=== PATIENT | male | born 1945 | race Caucasian/White ===

== ENCOUNTER 2017-05-25 00:21 | Inpatient (IN) | payer MEDICARE, BC ==
[2017-05-24 15:39] LABS: INR 1.03
[~2017-05-25] VITALS: Ht 162.6 cm; Wt 108.4 kg
[2017-05-25] VITALS (18 sets, daily range): BP systolic 113–170; BP diastolic 60–101
[~2017-05-25 00:21] MED LIST: ALLO-119 PO; ASPI-1471 PO; CARV25TA78 PO; DICL-195 PO; FURO20TA19 PO; KETO5DRO13 OP; LEVO50TA86 PO; LOSA100T67 PO; MISO200T62 PO; POLY17PO25 PO; SIMV-54 PO; TRAM-420 PO
--- NOTE | 2017-05-25 04:39 | HISTORY AND PHYSICAL ---
DATE OF ADMISSION: May 25, 2017 IDENTIFICATION, CHIEF COMPLAINT Kev is a 71-year-old gentleman with chief complaint of left hip pain. HISTORY OF PRESENT ILLNESS Patient has a longstanding history of arthritis progressively painful and debilitating, refractory to conservative care. Surgery is indicated to relieve pain after failure of nonoperative measures. PAST MEDICAL HISTORY Notable for coronary artery disease status post OR and stenting, hypertension controlled on medication, remote history of pneumonia. ALLERGIES He has no known allergies. CURRENT MEDICATIONS 1. Diclofenac 75 b.i.d. 2. Misoprostol 200 mcg b.i.d. 3. Levothyroxine 50 mcg p.o. q.day. 4. Carvedilol 25 mg p.o. b.i.d. 5. Simvastatin 40 mg p.o. b.i.d. 6. Losartan 100 mg p.o. q.day. 7. Allopurinol 300 mg p.o. q.day. 8. Furosemide 10 mg p.o. q.day. 9. Zaditor eye drops b.i.d. 10. Aspirin 81 mg p.o. q.day. PAST SURGICAL HISTORY Notable for coronary stent x 3, vasectomy, hemorrhoidectomy, thyroidectomy, carpal tunnel, right shoulder repair, sinus surgery, cataracts, back surgeries x 5. SOCIAL HISTORY Notable for chewing tobacco. He chews about a can every couple of weeks. Denies alcohol use or abuse. FAMILY HISTORY Negative. REVIEW OF SYSTEMS Negative. PHYSICAL EXAMINATION GENERAL: This is a healthy male. HEENT: He is normocephalic, atraumatic. NECK: Supple. LUNGS: Clear. HEART: Regular. ABDOMEN: Soft. ORTHOPEDIC EXAM: The left hip is stiff at the end range of motion. He has pain with combined flexion and rotation. Gross motor strength is intact. Skin envelope is intact. Neurovascular function is intact distally. RADIOGRAPHIC DATA Radiographs demonstrate end-stage hip arthritis. ASSESSMENT Left hip degenerative joint disease, progressively painful and disabling, refractory to conservative care. PLAN Per patient request, will proceed with total hip arthroplasty. Nature of the procedure, risks, benefits, and nonoperative alternatives are reviewed. Risks include, but are not limited to, , major medical or anesthetic complication , infection, neurovascular injury, blood transfusion, stiffness, scarring, fracture, tendon rupture, instability, leg length discrepancy, implant loosening , migration or failure, persistent or recurrent pain, need for additional operation, and other unforeseen. He understands and wishes to proceed. Signed permit was placed in the chart, no guarantees given or implied. KIM
[2017-05-25] MEDS ORDERED: cloNIDine EPIDUR INJ 100MCG/ML 40 MCG, ROPIVACAINE 0.5% 20 ML VIAL 25 ML, EPINEPHrine H... INJ ONE (06:15)
[2017-05-25] MEDS ORDERED: FAMOTIDINE 20 MG TAB PO ONE (06:15)
[2017-05-25] MEDS ORDERED: MIDAZOLAM 2 MG/2 ML VIAL IVP PRN (06:15)
[2017-05-25] MEDS ORDERED: LIDOCAINE/SOD BICARB 8.4% SYR ID ONE (06:15)
[2017-05-25] MEDS ORDERED: TRANEXAMIC AC 1000 MG/10ML SDV 1,000 MG in DEXTROSE 5% 50 ML BAG 50 ML IV ONE (06:15)
[2017-05-25] MEDS ORDERED: ceFAZolin(*) 2GM/D5W 50ML 50 ML IVPB ONE (06:15)
[2017-05-25] MEDS ORDERED: NORMOSOL R SOLN(*) 1000 ML BAG 1,000 ML IV PRN ×2 (06:15→09:30)
[2017-05-25] MEDS ORDERED: DEXAMETHASONE SOD PHOS 10MG/ML ONE (07:06)
[2017-05-25] MEDS ORDERED: ONDANSETRON 4 MG/2 ML VIAL ONE (07:06)
[2017-05-25] MEDS ORDERED: fentaNYL CITR 100 MCG/2 ML AMP ONE ×2 (07:07→09:28)
[2017-05-25] MEDS ORDERED: PROPOFOL EMUL(*) 10MG/ML 20 ML 40 ML ONE (07:07)
[2017-05-25] MEDS ORDERED: ROCURONIUM BROM 10 MG/ML 10 ML ONE (07:07)
[2017-05-25] MEDS ORDERED: LIDOCAINE MPF 1% 5 ML VIAL ONE (07:07)
[2017-05-25] MEDS ORDERED: SUCCINYLCHOL CHL 200MG/10ML VL ONE (07:07)
[2017-05-25] MEDS ORDERED: PHENYLEPHRINE/NS/PF 0.4MG/10ML ONE (07:30)
[2017-05-25] MEDS ORDERED: BISACODYL 10 MG SUPP PR PRN (09:30)
[2017-05-25] MEDS ORDERED: ACETAMINOPHEN 325 MG TAB PO PRN (09:30)
[2017-05-25] MEDS ORDERED: FLUSH 10 ML SYR IVP PRN (09:30)
[2017-05-25] MEDS ORDERED: BENZOCAINE/MENTHOL 1 EACH LOZG PO PRN (09:30)
[2017-05-25] MEDS ORDERED: ZOLPIDEM TARTRATE 5 MG TAB PO PRN (09:30)
[2017-05-25] MEDS ORDERED: PROMETHAZINE 25 MG/ML 1 ML AMP IVP PRN (09:30)
[2017-05-25] MEDS ORDERED: diphenhydrAMINE 50 MG/ML VIAL IVP PRN (09:30)
[2017-05-25] MEDS ORDERED: MAGNESIUM HYDROXIDE* 30ML UDCP PO PRN (09:30)
--- NOTE | 2017-05-25 09:52 | RADIOLOGY IMAGING REPORT ---
[place] [facility] [place] Kev Hallman : 1945 MR: [id number] V: [id number] EXAM DATE: ORDERING PHYSICIAN: CODI MCCOY TECHNOLOGIST: Location: [facility] [place] Patient: Kev Hallman : 1945 Visit/Account:[id number] Date of Sevice: 05/25/2017 PELVIS HISTORY: S/P L ERIN COMPARISON: None. FINDINGS: Anatomic alignment status post left total hip arthroplasty. No unexpected osseous finding. Expected s oft tissue changes. IMPRESSION: Anatomic alignment status post left total hip arthroplasty. Report Dictated By: Guillermo Salmeron MD at 05/25/2017 9:46 AM Report E-Signed By: Guillermo Salmeron MD at 05/25/2017 9:47 AM WSN:[id number]
[2017-05-25] MEDS: APAP/HYDROCODONE 325/7.5 TAB PO PRN ×2 (12:32→17:39)
--- NOTE | 2017-05-25 14:12 | Hospitalist Progress Note ---
Subjective Progress Notes Subjective Patient seen after left hip replacement. Patient's medical history and medications were reviewed. Patient reports no difficulty post operatively. He states that he is urinating well after surgery. Patient Complains of: Cardiovascular: No: Chest Pain Respiratory: No: Shortness of Breath Physical Exam Vital Signs Date Time Temp Pulse Resp B/P (MAP) Pulse Ox O2 Delivery O2 Flow Rate FiO2 05/25/17 10:30 Nasal Cannula 2.5 05/25/17 10:10 77 16 94 05/25/17 05:36 97.1 115/72 (86) Intake and Output 05/26/17 07:00 Intake Total 1690 ml Output Total 50 ml Balance 1640 ml Intake Oral 290 ml IV Total 1400 ml Output Estimated Blood Loss 50 ml General Appearance: Alert, Awake, No Acute Distress, Afebrile Cardiovascular: Regular Rate and Rhythm Respiratory: No Respiratory Distress, Clear to Auscultation Extremities: Warm, No Edema Psych: Appropriate Mood & Affect Assessment and Plan Problems: (1) Status post hip replacement Status: Acute Assessment & Plan: Patient had no obvious complications during surgery. Patient will start Aspirin 325 mg daily for DVT prophylaxis. (2) Hypothyroidism Status: Chronic Assessment & Plan: He will continue chronic treatment with levothyroxine. (3) Hypertension Status: Chronic Assessment & Plan: He will be restarted on Carvedilol, Losartan and Lasix with parameters. (4) Gout Status: Chronic Assessment & Plan: He is on chronic treatment with allopurinol. (5) Coronary artery disease Status: Chronic Assessment & Plan: History of myocardial infarction in 1999. (6) Hyperlipidemia Status: Chronic Assessment & Plan: He is on chronic treatment with simvastatin. Time Spent on Plan of Care: < 30 min Exam Sepsis Risk: No Definite Risk Problem Qualifiers (1) Status post hip replacement: Laterality: left Qualified Codes: Z96.642 - Presence of left artificial hip joint (2) Hypertension: Hypertension type: essential hypertension Qualified Codes: I10 - Essential ( primary) hypertension SHARLENE MORRISON May 25, 2017 14:12
[2017-05-25] MEDS ORDERED: POLYETHYLENE GLYCOL 17 GM PKT PO PRN (14:15)
[2017-05-25] MEDS ORDERED: NS(*) 0.9% 250 ML BAG 250 ML ONE (15:44)
[2017-05-25] MEDS: ceFAZolin 1 GM VIAL IVP SCH (16:05)
--- NOTE | 2017-05-25 16:19 | OPERATIVE REPORT 1 ---
EVENT DATE: May 25, 2017 SURGEON: Roby Acosta MD ANESTHESIOLOGIST: Matthew Bartlett MD ANESTHESIA: General. BELT SANDER STONE: Andrew Jarrell PA-C PREOPERATIVE DIAGNOSIS Left hip degenerative joint disease. POSTOPERATIVE DIAGNOSIS Left hip degenerative joint disease. PROCEDURE PERFORMED Left total hip arthroplasty. ESTIMATED BLOOD LOSS 250 mL DRAINS None. SPECIMENS None. COMPLICATIONS None apparent. IMPLANTS USED Alfred system with a Secur-Fit 132 size 9 stem, a 50 mm PSL shell, with a 36 mm , zero-degree offset polyethylene liner, and a Biolox 7.5 x 36 mm diameter head. INDICATIONS Kev has intractable pain and disability related to end-stage hip arthritis. Surgery is indicated to relieve these symptoms after failure of nonoperative measures. DESCRIPTION OF PROCEDURE The patient was taken to the operating room and placed supine on the operating table. General anesthesia was induced. Antibiotics and TXA were administered IV. The patient was positioned in the right lateral decubitus with his pelvis secured in a vertical position on a well-padded pegboard. His left hip girdle and lower extremity were prepped and draped in the usual sterile fashion for orthopedic surgery. A small incision posterolateral approach was made and carried down through the skin and subcutaneous tissue to the deep fascia. The fascia was incised over the tip of the trochanter and extended distally in line with the femur and proximally in line with the nuha fibers. The nuha fibers were split bluntly. The trochanteric bursa was excised. The interval between the abductor and external rotator was identified, and the abductor mechanism was protected with a blunt Hohmann. An L capsulotomy was performed starting just above the piriformis, lifting the external rotators and the capsule off the back of the femur. These were tagged for later anatomic reattachment with #2 Vicryl. The femoral head was dislocated. End-stage arthritic changes noted. Roughly 1.5 cm neck cut is made with an oscillating saw. The femoral head was extracted. The femur was translocated anteriorly. Periosteal acetabular retractors were placed with the tips down on bone to protect critical neurovascular structures. The labrum and pulvinar were excised. A 44 mm reamer was used to medialize the true medial wall of the acetabulum. This was expanded in 2 mm increments up to 50 where nice rim contact was obtained. A trial 50 had nice [id number] fit. A 51 was used to open the floor to the acetabulum, and the actual shell was impacted in approximately 45 degrees of lateral opening and 15 to 20 degrees of anteversion using the extracorporeal guide, the internal bony landmarks, and the transverse acetabular ligament to guide socket placement. Initially, an standard 0-degree offset liner was placed. Attention was turned to the femoral appropriation. The superior neck was resected with a cookie cutter. A Charnley awl found the canal. Tapered reaming was performed up to 9 where good end-osteal contact was obtained. Broaching started at 7 and worked up to 9, taking care to lateralize and follow the [place] version of the calcar at about 15 degrees of anteversion. With the [address], a trial reductions were performed. There was an issue with impingement on the anterior wall. A portion of this was taken down with a small osteotome and debrided, but in order to minimize impingement without compromising excessive leg length, I felt that an offset liner would serve the patient better. The old liner was extracted, and an offset, zero- degree, 36 mm head, and accommodating liner were inserted. Subsequently, the broach was reinserted and trial reduction performed. Good catholic of limb length and stability was achievable at this juncture with the 9 stem which filled the metaphysis and diaphysis ideally. The broach was extracted. The actual stem was impacted, and various neck lengths were tried. The +7.5 was felt to be optimal. The Alvarez taper was lavaged and dried, and the Biolox head was impacted into position. The joint was reduced. The wound was copiously lavaged. Hemostasis was assured. The external rotators and capsule were reapproximated anatomically through two drill holes in the posterolateral trochanter. The defect was closed with #2 Ethibond distally and #2 Vicryl proximally. The subcutaneous tissues were lavaged, and hemostasis was assured. The dermis was closed with 3-0 Vicryl and the skin with surgical thor. Xeroform and 4 x 4's dry, sterile dressing and a hip wrap were applied. The patient was rolled supine. An abduction pillow was placed. He was awakened from anesthesia and taken to the recovery room in stable condition, having tolerated the procedure well. PLAN The plan is for standard ER[facility] rehab protocol. [facility]
[2017-05-25] MEDS: CELECOXIB 200 MG CAP PO SCH (17:39)
[2017-05-25] MEDS: DIAZEPAM 5 MG TAB PO PRN (19:41)
[2017-05-25] MEDS: CARVEDILOL 25 MG TABLET PO SCH (21:04)
[2017-05-25] MEDS: SIMVASTATIN 40 MG TAB PO SCH (21:04)
[2017-05-25] MEDS: MISOPROSTOL 200 MCG TAB PO SCH (21:05)
[2017-05-26] VITALS: BP 138/70
[2017-05-26] MEDS: APAP/HYDROCODONE 325/7.5 TAB PO PRN ×4 (00:15→15:31)
[2017-05-26] MEDS: ceFAZolin 1 GM VIAL IVP SCH ×2 (00:16→09:24)
[2017-05-26 03:19] VITALS: BP 139/77
[2017-05-26] MEDS: LEVOTHYROXINE SOD 0.05 MG TAB PO SCH (05:58)
[2017-05-26] MEDS: diphenhydrAMINE 25 MG CAP PO PRN ×2 (05:59→21:21)
[2017-05-26 06:40] LABS: PLATELET COUNT, AUTOMATED 122 K/uL (150-450)
--- NOTE | 2017-05-26 08:48 | Hospitalist Progress Note ---
Subjective Progress Notes Subjective Patient doing well today. No acute events overnight. Patient Complains of: Cardiovascular: No: Chest Pain Respiratory: No: Shortness of Breath Physical Exam Vital Signs Date Time Temp Pulse Resp B/P (MAP) Pulse Ox O2 Delivery O2 Flow Rate FiO2 05/26/17 03:19 97.9 78 139/77 (97) 95 Nasal Cannula 2.0 05/25/17 14:00 20 General Appearance: Alert, Awake, No Acute Distress, Afebrile Cardiovascular: Regular Rate and Rhythm Respiratory: No Respiratory Distress, Clear to Auscultation Extremities: No Edema Psych: Alert & Oriented X3 Result Diagram: 05/26/1761705/26/17617 Assessment and Plan Problems: (1) Status post hip replacement Status: Acute Assessment & Plan: Patient will start Aspirin 325 mg daily for DVT prophylaxis for 30 days post op. He has no history of DVT or PE. Prior to surgery, he had elevated creatinine at 1.7. Creatinine today is stable. (2) Hypothyroidism Status: Chronic Assessment & Plan: He will continue chronic treatment with levothyroxine. (3) Hypertension Status: Chronic Assessment & Plan: He will be restarted on Carvedilol, Losartan and Lasix with parameters. (4) Gout Status: Chronic Assessment & Plan: He is on chronic treatment with allopurinol. (5) Coronary artery disease Status: Chronic Assessment & Plan: History of myocardial infarction in 1999. He had cardiac clearance prior to surgery. (6) Hyperlipidemia Status: Chronic Assessment & Plan: He is on chronic treatment with simvastatin. Exam Sepsis Risk: No Definite Risk Problem Qualifiers (1) Status post hip replacement: Laterality: left Qualified Codes: Z96.642 - Presence of left artificial hip joint (2) Hypertension: Hypertension type: essential hypertension Qualified Codes: I10 - Essential ( primary) hypertension SHARLENE MORRISON May 26, 2017 08:48
[2017-05-26] MEDS: LOSARTAN POTASSIUM 50 MG TAB PO SCH (09:00)
[2017-05-26 09:17] VITALS: BP 114/71
[2017-05-26] MEDS: ASPIRIN 325 MG TAB PO SCH (09:23)
[2017-05-26] MEDS: DIAZEPAM 5 MG TAB PO PRN ×2 (09:23→21:22)
[2017-05-26] MEDS: MISOPROSTOL 200 MCG TAB PO SCH ×2 (09:23→21:21)
[2017-05-26] MEDS: CELECOXIB 200 MG CAP PO SCH ×2 (09:23→17:48)
[2017-05-26] MEDS: CARVEDILOL 25 MG TABLET PO SCH ×2 (09:23→21:21)
[2017-05-26] MEDS: ALLOPURINOL 300 MG TAB PO SCH (09:23)
[2017-05-26 12:27] VITALS: Ht 162.6 cm; Wt 108.4 kg
[2017-05-26 15:29] VITALS: BP 143/77
[2017-05-26 19:56] VITALS: BP 117/63
[2017-05-26] MEDS: SIMVASTATIN 40 MG TAB PO SCH (21:21)
[2017-05-27 05:34] VITALS: BP 140/79
[2017-05-27] MEDS: LEVOTHYROXINE SOD 0.05 MG TAB PO SCH (05:34)
[2017-05-27] MEDS: APAP/HYDROCODONE 325/7.5 TAB PO PRN ×2 (05:34→10:27)
[2017-05-27] MEDS ORDERED: HYDR-4308 PO (08:06)
[2017-05-27] MEDS ORDERED: ASPI-764 PO (08:08)
[2017-05-27] MEDS ORDERED: FUROSEMIDE 20 MG TAB PO SCH (09:00)
--- NOTE | 2017-05-27 09:46 | Hospitalist Progress Note ---
Subjective Progress Notes Subjective Patient is complaining of surgical site pain this morning. Patient states he is ready to go home. Patient Complains of: Cardiovascular: No: Chest Pain Respiratory: No: Shortness of Breath Physical Exam Vital Signs Date Time Temp Pulse Resp B/P (MAP) Pulse Ox O2 Delivery O2 Flow Rate FiO2 05/27/17 05:34 97.6 70 16 140/79 (99) 95 Nasal Cannula 2.0 Intake and Output 05/28/17 07:00 Intake Total 240 ml Balance 240 ml Intake Oral 240 ml General Appearance: Alert, Awake, No Acute Distress, Afebrile Cardiovascular: Regular Rate and Rhythm Respiratory: No Respiratory Distress, Clear to Auscultation Psych: Alert & Oriented X3, Appropriate Mood & Affect Result Diagram: 05/26/1761705/26/17617 Assessment and Plan Problems: (1) Status post hip replacement Status: Acute Assessment & Plan: Patient will start Aspirin 325 mg daily for DVT prophylaxis for 30 days post op. He has no history of DVT or PE. (2) Hypothyroidism Status: Chronic Assessment & Plan: He will continue chronic treatment with levothyroxine. (3) Hypertension Status: Chronic Assessment & Plan: He will continue on Carvedilol. He will stop Losartan and Lasix at this time secondary to lower blood pressure readings. He will follow up with primary care provider for evaluation prior to re-starting medications. (4) Gout Status: Chronic Assessment & Plan: He is on chronic treatment with allopurinol. (5) Coronary artery disease Status: Chronic Assessment & Plan: History of myocardial infarction in 1999. He had cardiac clearance prior to surgery. (6) Hyperlipidemia Status: Chronic Assessment & Plan: He is on chronic treatment with simvastatin. Copies to: SCOOTER PEÑA MD Exam Sepsis Risk: No Definite Risk Problem Qualifiers (1) Status post hip replacement: Laterality: left Qualified Codes: Z96.642 - Presence of left artificial hip joint (2) Hypertension: Hypertension type: essential hypertension Qualified Codes: I10 - Essential ( primary) hypertension SHARLENE MORRISON [employer]INS [employer] EXAM[employer]ER May 27, 2017 09:46
[2017-05-27 10:00] VITALS: BP 160/92
[2017-05-27] MEDS: LOSARTAN POTASSIUM 50 MG TAB PO SCH (10:26)
[2017-05-27] MEDS: ASPIRIN 325 MG TAB PO SCH (10:26)
[2017-05-27] MEDS: CELECOXIB 200 MG CAP PO SCH (10:27)
[2017-05-27] MEDS: MISOPROSTOL 200 MCG TAB PO SCH (10:27)
[2017-05-27] MEDS: ALLOPURINOL 300 MG TAB PO SCH (10:27)
[2017-05-27] MEDS: CARVEDILOL 25 MG TABLET PO SCH (10:27)
== END 2017-05-27 11:20 | disposition home or self-care (01) | DRG 470 ==
LOC: OR 00:21 → MED 10:10
PROVIDERS: ADMIT Orthopaedic Surgery; ATTEND Orthopaedic Surgery
PROC: 0SRB04A Replacement of Left Hip Joint with Ceramic on Polyethylene Synthetic Substitute, Uncemented, Open Approach (ICD-10-PCS; principal; 2017-05-25 07:11)
DX: M16.12 Unilateral primary osteoarthritis, left hip (principal); Z68.41 Body mass index [BMI] 40.0-44.9, adult; I11.0 Hypertensive heart disease with heart failure; I25.10 Atherosclerotic heart disease of native coronary artery without angina pectoris; K21.9 Gastro-esophageal reflux disease without esophagitis; F17.220 Nicotine dependence, chewing tobacco, uncomplicated; E03.9 Hypothyroidism, unspecified; I50.9 Heart failure, unspecified; E66.9 Obesity, unspecified; M1A.9XX0 Chronic gout, unspecified, without tophus (tophi); E78.5 Hyperlipidemia, unspecified; I25.2 Old myocardial infarction; Z95.5 Presence of coronary angioplasty implant and graft; Z98.1 Arthrodesis status
CPT/HCPCS: 36415; 72170; 82310; 82374; 82435; 82565; 82947; 84132; 84295; 84520; 85025; 85610; 86850; 86900; 86901; 97161; 97165; C1776; J0171; J0330; J0690; J0735; J1100; J1885; J2001; J2250; J2370; J2405; J2704; J2795; J3010; J7050; J7060; Q0163